=== PATIENT | male | born 1950 | race Caucasian/White ===

== ENCOUNTER → 2020-01-09 | Outpatient (CLI) | payer MEDICARE, OTHER ==
[2016-02-14 11:00] VITALS: BP 156/72
[~2020-01-09] MED LIST: AMLO5TAB10 PO; ASPI-630 PO; ATORVASTATIN CA80 MG PO; FENO145T3 PO; ISOS30TA4 PO; LEVO500T8 PO; LINA5TAB PO; LISI-130 PO; METO-239 PO; TAMS0.4C2 PO
--- NOTE | 2020-01-09 19:29 | RAD ---
Examination: EXTREM NONVASCULAR LTD RIGHT History: Reason: RT INGUINAL HERNIA / Spl. Instructions: / History: Comparison/Correlation: None Findings: Ultrasound imaging of the right groin region was performed. Valsalva imaging performed. Small inguinal hernia is evident containing omental fat. No suspicious fluid collections. Benign-appearing right groin lymph nodes are present. Impression: Small fat-containing right inguinal hernia. Electronically signed by: Shravan Branham MD (01/09/2020 7:26 PM) [id number]
== END | disposition home or self-care (01) ==
LOC: US 18:11
PROVIDERS: ATTEND Family Medicine
DX: K40.90 Unilateral inguinal hernia, without obstruction or gangrene, not specified as recurrent (principal); K42.9 Umbilical hernia without obstruction or gangrene; K76.0 Fatty (change of) liver, not elsewhere classified; K28.1 Acute gastrojejunal ulcer with perforation
CPT/HCPCS: 76882

== ENCOUNTER 2021-04-02 06:17 | Day surgery (SDC) | payer MEDICARE, OTHER ==
[~2021-04-02] VITALS: Ht 177.8 cm; Wt 92.0 kg
[~2021-04-02 06:17] MED LIST changes: +ACETAMINOPHEN 500 MG TABLET PO PRN; +AMLO-186 PO; -AMLO5TAB10 PO; +ATOR40TA59 PO; +CLOP75TA PO; +HYDROmorphone 2 MG/ML VIAL IVP PRN; -ISOS30TA4 PO; +ISOS30TA68 PO; +LIPITOR80 MG PO; +LISI20TA18 PO; +MORPHINE SULFATE 2 MG/ML INJ. IVP PRN; +PROCHLORPERAZINE 10 MG/2 ML VIAL. IVP PRN; +SITA100T PO; +fentaNYL PF VIAL 100 MCG/2 ML VIAL IVP PRN
[2021-04-02] MEDS ORDERED: ONDANSETRON PF 4 MG/2 ML VIAL. ONE (06:58)
[2021-04-02] MEDS ORDERED: ROCURONIUM 50 MG/5 ML VIAL. ONE (06:58)
[2021-04-02] MEDS ORDERED: DEXAMETHASONE SOD PHOS 4 MG/ML VIAL ONE (06:58)
[2021-04-02] MEDS ORDERED: PROPOFOL 10 MG/ML (20ML) VIAL. IV ONE (06:58)
[2021-04-02] MEDS ORDERED: LIDOCAINE 2% PF 5 ML VIAL. ONE (06:58)
[2021-04-02] MEDS ORDERED: MINERAL OIL for SURGERY 10 ML VIAL. MC ONE (07:00)
[2021-04-02] MEDS ORDERED: BUPIVACAINE-EPI 0.25%-1:200000 MPF 30 ML VIAL. ONE (07:00)
[2021-04-02] MEDS ORDERED: INSULIN LISPRO 100 UNIT/ML 3ML VIAL for OP,RR ONLY. SQ PRN (07:15)
[2021-04-02] MEDS ORDERED: ETOMIDATE 20 MG/10 ML VIAL. IV ONE (07:25)
[2021-04-02] MEDS: IV RINGERS,LACTATED 1000ML 1,000 ML IV SCH ×2 (07:26→10:23)
[2021-04-02] MEDS ORDERED: INSULIN LISPRO 100 UNIT/ML 3ML VIAL for OP,RR ONLY. SQ ONE (07:30)
--- NOTE | 2021-04-02 07:37 | PDOC1 ---
History and Physical Date of Admission Date of Admission DATE: 04/02/21 TIME: 07:35 Identification/Chief Complaint Chief Complaint Right groin pain Source Source: Patient History of Present Illness History of Present Illness 71-year-old male with complaints of painful right groin bulge worse with activity CT scan shows right inguinal hernia Past Medical History Cardiovascular: CAD, HTN, Hyperlipidemia Pulmonary: No pertinent hx CENTRAL NERVOUS SYSTEM: Other GI: Constipation, GERD, Other Heme/Onc: No pertinent hx Hepatobiliary: No pertinent hx Psych: No pertinent hx Musculoskeletal: Osteoarthritis Rheumatologic: No pertinent hx Infectious disease: No pertinent hx Renal/: Benign prostatic enlarg. Endocrine: Diabetes Past Surgical History Past Surgical History: Arthroscopy, Other Family History Family History: Coronary Artery Disease Social History ALCOHOL: none Drugs: None Current Medications Current Medications Current Medications Fentanyl Citrate (Fentanyl 2ml Vial) 25 mcg PRN Q5MIN PRN IVP MILD PAIN 1-3; Start 04/02/21 at 06:00; Stop 04/03/21 at 05:59 Fentanyl Citrate (Fentanyl 2ml Vial) 50 mcg PRN Q5MIN PRN IVP MODERATE PAIN 4- 6; Start 04/02/21 at 06:00; Stop 04/03/21 at 05:59 Morphine Sulfate (Morphine Sulfate) 1 mg PRN Q10MIN PRN IVP SEVERE PAIN 7-10; Start 04/02/21 at 06:00; Stop 04/03/21 at 05:59 Ringer's Solution 1,000 ml @ 30 mls/hr Q24H IV Last administered on 04/02/21at 07:26; Start 04/02/21 at 06:00; Stop 04/02/21 at 17:59 Hydromorphone HCl (Dilaudid) 0.5 mg PRN Q10MIN PRN IVP SEVERE PAIN 7-10, 2nd CHOICE; Start 04/02/21 at 06:00; Stop 04/03/21 at 05:59 Prochlorperazine Edisylate (Compazine) 5 mg PACU PRN PRN IVP NAUSEA, MRX1; Start 04/02/21 at 06:00; Stop 04/03/21 at 05:59 Acetaminophen (Tylenol) 1,000 mg OC PROC PRN PO PRIOR TO PROCEDURE Last administered on 04/02/21at 07:24; Start 04/02/21 at 06:00; Stop 04/02/21 at 18:00 Levofloxacin/ Dextrose 100 ml @ 100 mls/hr 1X PREOP PRN IV PRIOR TO PROCEDURE; Start 04/02/21 at 06:00; Stop 04/02/21 at 18:00 Rocuronium [place] (Zemuron) 50 mg STK-MED ONCE .ROUTE ; Start 04/02/21 at 06:58; Stop 04/02/21 at 06:58; Status DC Dexamethasone Sodium Phosphate (Decadron) 4 mg STK-MED ONCE .ROUTE ; Start 04/02/21 at 06:58; Stop 04/02/21 at 06:58; Status DC Ondansetron HCl (Zofran) 4 mg STK-MED ONCE .ROUTE ; Start 04/02/21 at 06:58; Stop 04/02/21 at 06:58; Status DC Lidocaine HCl (Lidocaine Pf 2% Vial) 5 ml STK-MED ONCE .ROUTE ; Start 04/02/21 at 06:58; Stop 04/02/21 at 06:58; Status DC Propofol (Diprivan) 200 mg STK-MED ONCE IV ; Start 04/02/21 at 06:58; Stop 04/02/21 at 06:58; Status DC Mineral Oil (Muri-Lube) 10 ml STK-MED ONCE MC ; Start 04/02/21 at 07:00; Stop 04/02/21 at 07:00; Status DC Bupivacaine HCl/ Epinephrine Bitart (Sensorcaine-Epi 0.25%-1:000943 Mpf) 30 ml STK-MED ONCE .ROUTE ; Start 04/02/21 at 07:00; Stop 04/02/21 at 07:01; Status DC Insulin Human Lispro (HumaLOG VIAL for OP,RR ONLY) 0-10 units PRN Q1HR PRN SQ PER PROTOCOL Last administered on 04/02/21at 07:25; Start 04/02/21 at 07:15; Stop 04/03/21 at 07:14 Etomidate (Amidate) 20 mg STK-MED ONCE IV ; Start 04/02/21 at 07:25; Stop 04/02/21 at 07:25; Status DC Active Scripts Active Isosorbide Mononitrate Er (Isosorbide Mononitrate) 30 Mg Tab.er.24h 1 Tab PO DAILY 30 Days Clopidogrel (Clopidogrel Bisulfate) 75 Mg Tablet 1 Tab PO DAILY Reported Fenofibrate (Fenofibrate Nanocrystallized) 145 Mg Tablet 145 Mg PO DAILY Januvia (Sitagliptin Phosphate) 100 Mg Tablet 100 Mg PO DAILY Lisinopril 40 Mg Tablet 40 Mg PO DAILY Atorvastatin Calcium 40 Mg Tablet 40 Mg PO DAILY Metoprolol Succinate ( Xl ) (Metoprolol Succinate) 25 Mg Tab.er.24h 1 Tab PO DAILY Aspirin 81 Mg Tab.chew 1 Tab PO DAILY Allergies Allergies: Coded Allergies: Penicillins (Verified Allergy, Severe, convulsions, 04/02/21) iodine (Verified Allergy, Severe, passes out, 04/02/21) ROS Genitourinary: YES Pain Physical Exam General: Alert, Oriented X3, Cooperative, No acute distress HEENT: Atraumatic, EOMI Lungs: Clear to auscultation, Normal air movement Heart: RRR, no murmurs Abdomen: Normal bowel sounds, Soft, No tenderness Male Genitals Exam: hernia mass (Right inguinal hernia) Rectal Exam: not examined Extremities: No edema Skin: No significant lesion Neuro: Normal speech Psych/Mental Status: Mental status NL Vitals Vitals Vital Signs Date Time Temp Pulse Resp B/P (MAP) Pulse Ox O2 Delivery O2 Flow Rate FiO2 04/02/21 06:47 97.1 50 20 139/67 96 Room Air 97.1 Labs Labs Laboratory Tests Test 04/02/21 06:58 Glucose (Fingerstick) 135 mg/dL (70-99) Laboratory Tests Test 04/02/21 06:58 Glucose (Fingerstick) 135 mg/dL (70-99) VTE Prophylaxis Ordered VTE Prophylaxis Devices: Yes VTE Pharmacological Prophylaxi: Contraindicated Assessment/Plan Assessment/Plan Right inguinal hernia plan robotic assisted laparoscopic repair with mesh Justifications for Admission Other Justification HANDY BLAIR MD Apr 02, 2021 07:37
[2021-04-02] MEDS ORDERED: fentaNYL PF VIAL 100 MCG/2 ML VIAL ONE ×2 (07:52→09:13)
[2021-04-02] MEDS ORDERED: GLYCOPYRROLATE 1 MG/5 ML VIAL. ONE (07:55)
[2021-04-02] MEDS ORDERED: NEOSTIGMINE METHYLSULFATE 5 MG/5 ML SYRINGE. ONE (08:28)
[2021-04-02] MEDS ORDERED: SEVOFLURANE 31 TO 60 MINUTES. IH ONE (08:43)
--- NOTE | 2021-04-02 08:48 | PDOC4 ---
Operative Note Operative Note Date: April 02 2021 at 845 Preoperative diagnosis: Right inguinal hernia Postoperative diagnosis: Same Procedure: Robotic assisted laparoscopic right inguinal hernia repair with mesh Surgeon: Terrell Specimen: None Dictation: Patient is a 71-year-old gentleman with complaints of a painful bulge in his right groin a CT scan showing right inguinal hernia with incarcerated contents. Procedure of robotic assisted laparoscopic right inguinal hernia repair with mesh was explained to the patient detail risk benefits were also discussed including bleeding infection injury to intra-abdominal contents possible necessitating further open operations alternatives to this procedure also discussed with the patient who seemed to understand and gave a verbal and written consent to have the procedure performed. Patient was taken to the operating room placed in supine position general anesthesia was initiated once patient was sleeping intubated placed in low lithotomy positioning his abdomen was prepped and draped usual sterile fashion using ChloraPrep. An area just above the umbilicus injected already percent Marcaine with epinephrine incision was made 11 blade scalpel and a varies needle was placed within the abdomen creating pneumoperitoneum once this was complete 8 mm da Hortencia port was placed in the 8 mm camera was placed within the abdomen which was inspected was noted there was a right inguinal hernia with some incarcerated small bowel. A 8 mm da Hortencia port was placed in the right midabdomen and an 8 mm da Hortencia port was placed in the left midabdomen the da Hortencia robot is brought and docked all port sites surgeon went to the robotic console using a grasper and Endo Froy scissors the incarcerated small bowel was reduced from the hernia defect a incision was made in the peritoneum above the hernia defect the peritoneum was dissected with blunt and sharp dissection reducing the hernia sac and contents. A 3D Bard large mesh for the right side was placed over the hernia defect and the peritoneum was closed over the mesh with a running 2 OV lock absorbable suture. Suture was removed from the abdomen the da Hortencia undocked from all port sites all ports were removed all port sites were closed with 4 subcuticular M onocryl Mastisol Steri-Strips and island dressings were applied. Patient was awakened extubated in the operating room taken to recovery in stable condition all sponge instrument needle counts listed as correct estimated blood loss 5 mL HANDY BLAIR MD Apr 02, 2021 08:48
[2021-04-02] MEDS ORDERED: OXYC-325 PO (08:50)
[2021-04-02] MEDS: fentaNYL PF VIAL 100 MCG/2 ML VIAL IVP PRN ×2 (09:17→09:35)
[2021-04-02] MEDS ORDERED: oxyCODONE/APAP 5/325 1 TAB TABLET PO ONE (09:45)
[2021-04-02 10:44] VITALS: BP 91/60
[2021-04-02] MEDS ORDERED: PROCHLORPERAZINE 10 MG/2 ML VIAL. ONE (11:02)
== END 2021-04-02 11:20 | disposition home or self-care (01) ==
LOC: SURG 06:17
PROVIDERS: ATTEND Surgery
DX: K40.30 Unilateral inguinal hernia, with obstruction, without gangrene, not specified as recurrent (principal); I12.0 Hypertensive chronic kidney disease with stage 5 chronic kidney disease or end stage renal disease; E11.22 Type 2 diabetes mellitus with diabetic chronic kidney disease; N18.30 Chronic kidney disease, stage 3 unspecified; E78.00 Pure hypercholesterolemia, unspecified; G47.30 Sleep apnea, unspecified; N40.0 Benign prostatic hyperplasia without lower urinary tract symptoms; M19.90 Unspecified osteoarthritis, unspecified site; I25.10 Atherosclerotic heart disease of native coronary artery without angina pectoris; Z79.82 Long term (current) use of aspirin; Z79.84 Long term (current) use of oral hypoglycemic drugs; Z79.899 Other long term (current) drug therapy; Z98.890 Other specified postprocedural states; Z82.49 Family history of ischemic heart disease and other diseases of the circulatory system; Z88.0 Allergy status to penicillin; Z91.041 Radiographic dye allergy status
CPT/HCPCS: 49650; 82962; A4364; A4930; A6219; C1781; J0780; J1100; J1815; J1956; J2405; J2704; J2710; J3010; J3490; A4657